=== PATIENT | female | born 1935 | race Caucasian/White ===

== ENCOUNTER 2017-06-20 10:35 | Inpatient (IN) | payer OTHER ==
[2017-06-01 11:09] VITALS: BMI 22.0
--- NOTE | 2017-06-01 11:56 | PAT Medication Instructions ---
Service Date Jun 01, 2017. Current Home Medication List Atenolol (Tenormin), 25 MG PO QAM Naproxen (Aleve), 220 MG PO DAILY PRN for Pain Omeprazole (Prilosec), 20 MG PO QAM Medication Instructions For Your Scheduled Surgery - Follow surgeon's instruction for the following: Naproxen (Aleve), 220 MG PO DAILY PRN for Pain - Take the following medications the morning of surgery with a sip of water: Omeprazole (Prilosec), 20 MG PO QAM Atenolol (Tenormin), 25 MG PO QAM If you have any questions please call us at [phone] or [phone] or [phone]
[2017-06-01 12:54] LABS: BASO ABS # 0.05 K/uL (0-0.2); COMPLETE YES; EOS % 3.2 %; IG% 0.2 %; LYMPH % 24.6 %; LYMPH ABS # 1.23 K/uL (1.2-3.4); MEAN CELL VOLUME 89.1 fL (80-100); MEAN CORPUSCULAR HEMOGLOBIN 29.4 pg (25-34); MEAN PLATELET VOLUME 11.2 fL (7.4-10.4); PLATELET COUNT 180 K/uL (130-400); RED BLOOD COUNT 4.49 M/uL (4.2-5.4); WHITE BLOOD COUNT 5.01 K/uL (4.8-10.8)
--- NOTE | 2017-06-01 12:55 | DIAGNOSTIC IMAGING REPORT ---
CHEST PREADMISSION(PA/LAT) CLINICAL HISTORY: 81 years-old Female presenting with preadmission chest x-ray. TECHNIQUE: PA and lateral views of the chest were obtained. COMPARISON: Chest CT from 05/04/2015. FINDINGS: Cardiomediastinal silhouette normal. Stable appearance of the partially calcified left lung nodule. Additional calcified nodules at the right apex with associated scarring. No new focal opacity. No pleural effusion or pneumothorax. Scoliosis. Degenerative changes of the bilateral glenohumeral joints likely with a loose body on the right. Upper abdomen normal. IMPRESSION: 1. No acute cardiopulmonary disease. Chronic changes above. Electronically signed by: Berny Nowak M.D. 06/01/2017 12:54 PM Dictated Date/Time: 06/01/2017 12:49 PM
[2017-06-01 13:00] LABS: URINE APPEARANCE CLEAR (CLEAR); URINE BILIRUBIN NEG (NEG); URINE COLOR YELLOW; URINE NITRITE NEG (NEG); URINE SPECIFIC GRAVITY 1.019 (1.000-1.030); UROBILINOGEN NEG (NEG); ZZUR CULT IF INDIC CLEAN CATCH NO
[2017-06-01 13:01] LABS: MANUAL MICROSCOPIC REQUIRED? NO; REVIEW REQ? NO
[2017-06-01 13:04] LABS: PARTIAL THROMBOPLASTIN RATIO 0.9; PROTHROMBIN TIME (PATIENT) 10.5 SECONDS (9.0-12.0)
[2017-06-01 13:24] LABS: ESTIMATED AVERAGE GLUCOSE 126 mg/dl; HA1C FLAG Normal (Normal)
[2017-06-01 14:31] LABS: BUN/CREATININE RATIO 23.1 (10-20); CALCIUM 8.5 mg/dl (8.5-10.1); CREATININE 0.82 mg/dl (0.60-1.20); POTASSIUM 4.7 mmol/L (3.5-5.1)
--- NOTE | 2017-06-19 18:56 | HISTORY & PHYSICAL EXAMINATION ---
DATE OF ADMISSION: 06/20/2017 CHIEF COMPLAINT: Chronic left shoulder pain. HISTORY OF PRESENT ILLNESS: This is a 81-year-old female patient of Dr. Bah who is complaining of chronic left shoulder pain, longstanding, now progressively getting worse. The patient has failed conservative treatment and been diagnosed with arthritis and rotator cuff arthropathy and insufficiency. The patient wishes to proceed with a left reverse total shoulder arthroplasty. PAST MEDICAL HISTORY: Heart valve problems, irregular heartbeat, recent pneumonia, spine problems, acid reflux, and hiatal hernia. SOCIAL HISTORY: Nonsmoker, nondrinker. PAST SURGICAL HISTORY: Both shoulders and appendectomy. FAMILY HISTORY: Noncontributory. REVIEW OF SYSTEMS: The patient complains of chronic right shoulder pain and weakness. Otherwise, denies any shortness of breath, chest pain, nausea, vomiting or any other joint complaints. MEDICATIONS: Include atenolol 25 mg daily, Prilosec 20 mg daily, and Aleve 220 mg p.r.n. ALLERGIES: No known drug allergies. PHYSICAL EXAMINATION: GENERAL: Well-developed, well-nourished 81-year-old female in no acute distress. She is alert and oriented x3 and pleasant. HEENT: Normocephalic, atraumatic. Extraocular motions are intact. Pupils are equal and reactive to light. HEART: Regular rate and rhythm, no murmurs appreciated. LUNGS: Clear. ABDOMEN: Soft, nontender, bowel sounds present. EXTREMITIES: Left shoulder reveals 3/5 strength. She has crepitation with passive range of motion. She has pain with range of motion. NEUROLOGIC: Neurovascularly, she is intact in her left upper extremity. DIAGNOSES: Left shoulder rotator cuff tendonopathy and arthritis. She also has a history of a heart valve problems, irregular heartbeat, recent pneumonia, spine problems, acid reflux, and hiatal hernia. PLAN: The patient was advised of her diagnosis. Indications, risks, benefits, and postop course have all been reviewed. The patient wishes to proceed with a left reverse total shoulder arthroplasty. Necessary consent forms, preoperative testing and clearances will be obtained.
[2017-06-20] VITALS (7 sets, daily range): BP systolic 126–150; BP diastolic 60–73; PULSE 65–72; TEMP 36.7–37.1; O2SAT 95–100; Ht 167.6 cm; Wt 62.6 kg
[~2017-06-20] VITALS: Ht 167.6 cm; Wt 62.6 kg
[~2017-06-20 10:35] MED LIST: ACETAMINOPHEN 500 MG TAB PO SCH; ATEN-173 PO; ATROPINE SULFATE 0.1 MG/ML 5ML SYR IV PRN; CEFAZOLIN 1000MG/55 ML D5W 55 ML IV SCH; CeleBREX 200 MG CAP PO SCH; DEXAMETHASONE 4 MG TAB PO SCH; EpHEDrine SULFATE INJ 50 MG/ML AMP IV PRN; FAMOTIDINE 20 MG TAB PO SCH; GABAPENTIN 300 MG CAP PO SCH; HYDROmorphone INJ 2 MG/ML SYR/VIAL IV PRN; LACTATED RINGER'S 1000ML 1,000 ML IV SCH; LACTATED RINGER'S 1000ML IV SCH; METOCLOPRAMIDE HCL 10 MG TAB PO SCH; NAPR1TAB9 PO; ONDANSETRON INJ 2 MG/ML 2 ML VIAL IV PRN; PHENYLEPHRINE 100MCG/ML 5ML SYR IV PRN; PRLSR20 PO; ROPIVACAINE 0.5% 5 MG/ML 30 ML VIAL ONE
[2017-06-20] MEDS ORDERED: MIDAZOLAM HCL 1 MG/ML 2ML VIAL ONE (11:00)
[2017-06-20] MEDS ORDERED: FENTANYL CITRATE INJ 50 MCG/1 ML 2 ML VIAL ONE (11:00)
[2017-06-20] MEDS ORDERED: LIDOCAINE HCL 2% 2 ML VIAL (20MG/ML) ONE (11:01)
[2017-06-20] MEDS ORDERED: PROPOFOL IV EMULSION 10 MG/ML 20 ML VIAL IV ONE (11:01)
[2017-06-20] MEDS ORDERED: ONDANSETRON INJ 2 MG/ML 2 ML VIAL ONE (11:01)
--- NOTE | 2017-06-20 12:02 | History & Physical Bridge Note ---
H&P Re-Evaluation Bridge Note: I have examined the patient, reviewed the History & Physical and in the interval since the performance of the History & Physical I have noted the following changes of clinical significance: No changes noted
[2017-06-20] MEDS ORDERED: BACITRACIN 50000 UNIT VIAL ONE (12:34)
[2017-06-20] MEDS ORDERED: GLYCOPYRROLATE INJ 0.2 MG/ML VIAL ONE ×2 (13:40)
[2017-06-20] MEDS ORDERED: NEOSTIGMINE METHYLSULFATE 5 MG/5 ML SYR ONE (13:40)
[2017-06-20] MEDS ORDERED: ROCURONIUM BROMIDE 10 MG/ML 5 ML VIAL IV ONE ×2 (14:10→15:00)
[2017-06-20] MEDS ORDERED: EpHEDrine SULFATE INJ 50 MG/ML AMP ONE (14:36)
[2017-06-20] MEDS ORDERED: PHENYLEPHRINE 100MCG/ML 5ML SYR ONE (15:03)
[2017-06-20] MEDS ORDERED: BISACODYL 10 MG SUPP PR PRN (16:00)
[2017-06-20] MEDS ORDERED: METOCLOPRAMIDE HCL INJ 5 MG/ML 2 ML VIAL IV PRN (16:00)
[2017-06-20] MEDS ORDERED: ONDANSETRON INJ 2 MG/ML 2 ML VIAL IV PRN (16:00)
[2017-06-20] MEDS ORDERED: SOD PHOSPHATE/SOD BIPHOSPHATE ENEMA 132 ML BTL PR PRN (16:00)
[2017-06-20] MEDS ORDERED: ZOLPIDEM TARTRATE 5 MG TAB PO PRN (16:00)
[2017-06-20] MEDS ORDERED: MAGNESIUM HYDROXIDE SUSP 30 ML UDC PO PRN (16:00)
[2017-06-20] MEDS ORDERED: NALOXONE HCL 0.4 MG/1 ML VIAL/CARP IV PRN (16:00)
--- NOTE | 2017-06-20 16:24 | DIAGNOSTIC IMAGING REPORT ---
L SHOULDER MIN 2 VIEWS ROUTINE CLINICAL HISTORY: Post shoulder surgery. COMPARISON: None FINDINGS: Alignment of the left shoulder arthroplasty is anatomic. There is no periprosthetic fracture or unexpected radiopaque foreign body. Drains are in place. Skin igor are present. A left lung partially calcified nodule is unchanged. IMPRESSION: Expected findings following left shoulder arthroplasty. Electronically signed by: Wade Guerra M.D. 06/20/2017 4:22 PM Dictated Date/Time: 06/20/2017 4:20 PM
--- NOTE | 2017-06-20 16:32 | [facility] Post Operative Brief Note ---
Immediate Operative Summary Operative Date Jun 20, 2017. Pre-Operative Diagnosis Left Shoulder Rotator Cuff Tendonopathy and Osteoarthritis Post-Operative Diagnosis Same as preoperative,biceps tendinopahty ,repairable infraspinatus Procedure(s) Performed Left Reverse Total Shoulder Arthroplasty, Rotator Cuff Repair, Bicep Tenodesis Surgeon Dr. Prabhakar Pablo [employer] Repairer Surgeon(s) Gilberto Berumen PA-C Estimated Blood Loss 25ml Findings as above,grade 4 djd some bone loss Specimens a. left humeral head Drains 2 hemovac Anesthesia general regional Complication(s) None Disposition Recovery Room / PACU
--- NOTE | 2017-06-20 17:01 | OPERATIVE REPORT ---
DATE OF OPERATION: 06/20/2017 INDICATION FOR PROCEDURE: The patient is a 81-year-old female with chronic left shoulder pain and disability. She has had previous rotator cuff repair in the past. She went on to fail rotator cuff repair and have chronic weakness, pain and develop osteoarthritis and advanced rotator cuff arthropathy and end-stage glenohumeral DJD with some posterior glenoid erosion. She has limited function at this time with her forward elevation, only actively and 90 abduction only to about 70 and the passive motion is no better and external rotation to 30 degrees. She has dvvh-ej-buvg crepitation in the shoulder. PREOPERATIVE DIAGNOSES: End-stage rotator cuff arthropathy, end-stage degenerative joint disease, chronic rotator cuff tear, status post failed rotator cuff repair, left shoulder. POSTOPERATIVE DIAGNOSES: Same including marked biceps tendinopathy. PROCEDURE: Left shoulder reversed total shoulder arthroplasty with biceps tenodesis with rotator cuff repair of infraspinatus tendon. SURGEON: Dr. Pablo. CLAIM REP: Gilberto Berumen PA-C. ANESTHESIA: Regional block and general. OPERATIVE PROCEDURE: The patient was taken to the operating room, anesthetized with regional block and general anesthetic. The patient was positioned on the operating room table in a 30 degree beach chair position. She was placed onto a towel roll under her left scapula. She was translated to left side of the bed, so her shoulder could be manipulated off the bed as necessary. Head was placed on a foam headrest. She had protective eyewear placed. She had TEDs and SCDs placed. Left shoulder was examined under anesthesia. She had thin arm. She had 90 degrees of passive forward elevation, 70 degrees of abduction and 30 degrees of external rotation and [id number] crepitation. She had old scars from prior surgery with longitudinal scars from open surgery and the prior arthroscopy. Her left shoulder was sterilely prepped and draped with ChloraPrep. An anterior deltopectoral approach was performed. Skin was incised sharply in a longitudinal fashion. Subcutaneous flaps were elevated. She had thin flaps of tissue. The cephalic vein was dissected out and retracted laterally with the deltoid. The pectoralis was retracted medially. The upper centimeter of the pectoralis was released for inferior exposure. The thickened clavipectoral fascia was divided at the lateral margin of the strap muscle and conjoined tendon extended up to the CA ligament which was preserved. The thickened bursa was resected off the subscapularis which was noted to be intact. There was a large thickened area of debris and synovial tissue coming out of the rotator interval overlapping the anterior upper subscapularis. This scarred material was all resected. The supraspinatus tendon had a chronic tear. The infraspinatus tendon was still intact to the greater tuberosity, but there was a split between the infraspinatus and teres minor with a tendinopathic tissue between those areas and I felt we could go ahead and repair that posterior defect. The biceps tendon sheath was opened up and the biceps tendon had significant tendinopathy and later in the case, we identified the biceps in the joint and there was widened, thickened marked tendinopathy. The biceps was first tenodesed to the pectoralis tendon with a upkwkj-th-gnacr #2 FiberWire sutures. The proximal biceps tendon was resected. The circumflex vessels were identified, tied off with silk ties and divided laterally. The muscle fibers of the subscapularis was split at the level of the circumflex vessels leaving a cuff of tissue to protect the axillary nerve inferiorly and a Kitner elevator was used to reflect the muscle fibers off the inferior capsule and a blunt Hohmann retractor was placed to protect the axillary nerve. The rotator interval was opened up and extended down to the glenoid and extended lateral to the greater tuberosity. Then we carried incision down through the bicipital groove and took the subscapularis down this subperiosteally off the lesser tuberosity. A traction suture with #1 Vicryl suture was placed into the tendon. The capsule was then released off the neck of the humerus gradually as we externally rotated the arm. Then in this we had a large inferior humeral osteophyte extended from lateral to medial. We used the artist chisel to resect the osteophytes and a rongeur to remove all the osteophytes. There was also large osteophyte on the lesser tuberosity and that was removed. The humeral head was completely exposed bone as well as the glenoid and there was some posterior glenoid wear. There was little bit of articular cartilage in the anterior most aspect of the glenoid. At this point, we retracted the humeral head posteriorly with a Fukuda retractor and then we noticed some bleeding and the friable large cephalic vein did rupture as we tied it off. At this time, then with the axillary nerve protected inferiorly after identifying with a tug test and protected by blunt Hohmann retractor, we used a Garcia scissors and cut the capsule down to the glenoid and released the capsule off the anterior labrum and glenoid with the Garcia scissors and then the rotator interval was released down to meet at capsular release, so we had a 360 degree release of the subscapularis. The subscapularis was then retracted anteriorly with a Bankart retractor. Then, the labrum was resected, the remainder of the biceps tendon was resected, some remnants of the supraspinatus tendon were resected. The anterior, posterior-inferior capsular release was performed with electrocautery and a Barkley elevator. Then we were able to go ahead and exposed the humeral head. At this time, we internally rotated the arm and identified the posterior rotator cuff tear between teres minor and infraspinatus and did elliptical resection of the degenerative tissue, I used a rongeur on the bone to get a bony bleeding surface, then we did a tbss-ut-ncnp repair between the teres minor and infraspinatus using nzgwie-ch-lrhax #2 FiberWire sutures. Then the humeral head was exposed with extension and external rotation and a cutting guide for the humeral head resection was used. I used a Tonier Aequalis reversed II shoulder replacement system using an Ascend Flex long stem humeral component. The cut was made in 20 degrees of retroversion. The humeral head was then retracted posterior to the glenoid. I used a curet to remove some of the articular cartilage on the anterior glenoid so we were able to see the true version. Then we placed a drill hole using the 25 mm baseplate guide. the guide was adjusted inferiorly so that we would not get notching. We also put an inferior tilt to 10 degrees on the alignment of the drill hole placement. Then the 25 mm reamer was used and then the central hole was widened and we placed the 25 mm baseplate and impacted in position. This was hydroxyapatite coated 25 mm baseplate. We used anterior and posterior compression screws of 23 and 18 mm and superior and inferior locking screws of 32 and 23 mm. Then the baseplate was completely stable. The patient had excellent bone. I used the fan reamer for a 36 mm glenosphere and then removed all the debris. Then we placed a 36 x 25 mm standard glenosphere in place and the screw was tightened and the fixation was stable. Then the humerus was exposed with extension and external rotation. We broached up to a size 6 humeral component. We did trial reduction with a +0 high offset tray and a +6 insert and we though it was completely stable and no shock and conjoined tendon tension was tight fit and satisfactory and the shoulder was stable to full passive range of motion. The trial was removed and then 3 drill holes were made through hard bone in the bicipital groove, placed around the lesser tuberosity and #5 FiberWire sutures were placed x3. Then after copious irrigation, the final components were assembled, the Ascend Flex 6B long stem assembled to the humeral tray +0 3.5 offset assemble to the 36 x 6 mm humeral insert. Then that entire implant was impacted into the humerus maintained to 20 degrees of retroversion. There was excellent press fit fixation. Then I reduced the humeral to the glenosphere component. Then I reassessed stability. Then, the subscapularis was repaired with the #5 FiberWire sutures using a Nikhil-Kris suture technique. Then we did some lateral soft tissue fixation of the subscapularis with vispav-wt-tqgqs #2 FiberWire sutures. Then the pectoralis was repaired reinforcing the tenodesis using #2 FiberWire sutures in a tbxgwu-lu-vxzaa fashion. Then we assessed range of motion. The patient had about 45-50 degrees of external rotation without tension on subscapularis repair. She had 120 degrees of forward elevation and 90 degrees of abduction. The wound was copiously irrigated with antibiotic solution and bacitracin. The 2 drains were brought out laterally. The deltopectoral interval was repaired with edymnx-in-lmboi #1 Vicryl sutures and the subcutaneous tissue closed with interrupted 2-0 Vicryl, skin closed with igor. Sterile dressings were applied and a shoulder immobilizer. The patient tolerated the procedure well. VENESSA Gutierrez was my mechanic assistant and he function as mechanic assistant for the entire procedure. He assisted in patient positioning, prepping, draping, arm positioning, instrument management and soft tissue retraction as necessary and he did perform the final subcutaneous and skin closure and will participate in the postoperative care of the patient. I attest to the content of the Intraoperative Record and any orders documented therein. Any exceptions are noted below. HAMIDA
--- NOTE | 2017-06-20 17:21 | Medical Consult ---
Consultation Date of Consultation: Jun 20, 2017. Attending Physician: Prabhakar Pablo M.D. Reason for Consultation: Medical management History of Present Illness Patient is a pleasant 81 y/o female, with PMHx of heart valve problems, irregular heartbeat, spine problems, acid reflux, hiatal hernia s/p L total shoulder arthroplasty by Dr. Pablo on 06/20. Patient resting in bed. No complaints. Pain is well controlled. Has not eaten anything since procedure. No flatus/BM postop. Takes Atenolol for an irregular heartbeat- denies a.fib/ flutter. Does NOT follow w/ cardiology. Patient denies any fever, chills, sweats , lightheadedness, dizziness, vision changes, CP, palpitations, edema, SOB, wheezing, cough, abdominal pain, nausea, vomiting, diarrhea, urinary symptoms, melena, numbness/tingling, weakness, anxiety/depression, active bleeding, or new skin discoloration/changes. Past Medical/Surgical History PAST MEDICAL HISTORY: Heart valve problems- mitral irregular heartbeat spine problems acid reflux hiatal hernia. PAST SURGICAL HISTORY: bilateral shoulders appendectomy Family History Noncontributory Social History Smoking Status: Never Smoker Alcohol Use: none Drug Use: none Occupation Status: retired Allergies Coded Allergies: Doxycycline (Unverified Allergy, Unknown, UNKNOWN REACTION, 06/20/17) PER PCP RECORDS Levofloxacin (Unverified Allergy, Unknown, UNKNOWN REACTION, 06/20/17) PER PCP RECORDS Home Medications Reported Home Medications Medications Dose Route/Sig Max Daily Dose Days Date Category Aleve (Naproxen) 220 Mg Tab 220 Mg PO DAILY PRN 06/01/17 Reported Prilosec (Omeprazole) 20 Mg Capcr 20 Mg PO QAM 06/01/17 Reported Tenormin (Atenolol) 25 Mg Tab 25 Mg PO QAM 06/01/17 Reported Current Inpatient Medications Current Inpatient Medications Medications (Trade) Dose Ordered Sig/Blayne Route Start Time Stop Time Status Last Admin Dose Admin Lactated Ringer's 1,000 ml @ 15 mls/hr Q24H IV 06/20/17 06:00 06/21/17 05:59 Lactated Ringer's 1,000 ml @ 60 mls/hr [id number] IV 06/20/17 06:00 06/20/17 22:39 06/20/17 10:56 60 MLS/HR Cefazolin Sodium 55 ml @ 100 mls/hr PREOP IV 06/20/17 06:00 06/20/17 18:00 06/20/17 06:00 100 MLS/HR Acetaminophen (Tylenol Tab) 1,000 mg PREOP PO 06/20/17 06:00 06/20/17 18:00 06/20/17 10:59 1,000 MG Celecoxib (CeleBREX CAP) 200 mg PREOP PO 06/20/17 06:00 06/20/17 18:00 06/20/17 10:57 200 MG Dexamethasone (Decadron Tab) 8 mg PREOP PO 06/20/17 06:00 06/20/17 18:00 06/20/17 10:57 8 MG Famotidine (Pepcid Tab) 20 mg PREOP PO 06/20/17 06:00 06/20/17 18:00 06/20/17 10:58 20 MG Gabapentin (Neurontin Cap) 300 mg PREOP PO 06/20/17 06:00 06/20/17 18:00 06/20/17 10:58 300 MG Metoclopramide HCl (Reglan Tab) 10 mg PREOP PO 06/20/17 06:00 06/20/17 18:00 06/20/17 10:58 10 MG Atenolol (Tenormin Tab) 25 mg QAM PO 06/21/17 09:00 07/21/17 08:59 UNV Diphenhydramine HCl (Benadryl Cap) 25 mg Q8 PRN PO 06/20/17 16:00 07/20/17 15:59 Zolpidem Tartrate (Ambien Tab) 5 mg HSZ PRN PO 06/20/17 16:00 07/20/17 15:59 Metoclopramide HCl (Reglan Inj) 10 mg Q6H PRN IV 06/20/17 16:00 07/20/17 15:59 Ondansetron HCl (Zofran Inj) 4 mg Q6H PRN IV 06/20/17 16:00 07/20/17 15:59 Pantoprazole Sodium (Protonix Tab) 40 mg QAM PO 06/21/17 09:00 07/21/17 08:59 UNV Potassium Chloride/Dextrose/ Sod Cl 1,000 ml @ 100 mls/hr Q10H IV 06/20/17 15:48 06/21/17 15:00 UNV Oxycodone HCl (Roxicodone Immediate Rel Tab) `1-2 TABS FOR PAIN `1 TAB... Q4H PRN PO 06/20/17 16:00 07/04/17 15:59 UNV Acetaminophen (Tylenol Tab) 1,000 mg Q8 PO 06/20/17 22:00 07/20/17 21:59 UNV Morphine Sulfate (MoRPHine SULFATE INJ) 2 mg Q2H PRN IV 06/20/17 16:00 07/04/17 15:59 UNV Naloxone HCl (Narcan Inj) 0.1 mg Q2M PRN IV 06/20/17 16:00 07/20/17 15:59 Magnesium Hydroxide (Milk Of Magnesia Susp) 30 ml Q6H PRN PO 06/20/17 16:00 07/20/17 15:59 Bisacodyl (Dulcolax Supp) 10 mg DAILY PRN KS 06/20/17 16:00 07/20/17 15:59 Sodium Biphosphate/ Sodium Phosphate (Fleet Enema) 132 ml DAILY PRN [place] 06/20/17 16:00 07/20/17 15:59 Docusate Sodium (coLACE CAP) 100 mg BID PO 06/20/17 21:00 07/20/17 20:59 UNV Multivitamins (Multivitamin Tab) 1 tab DAILY PO 06/21/17 09:00 07/21/17 08:59 UNV Cefazolin Sodium 1000 mg/Dextrose 55 ml @ 100 mls/hr Q8H IV 06/20/17 16:00 06/21/17 00:32 UNV Aspirin (Ecotrin Tab) 325 mg QAM PO 06/21/17 09:00 07/21/17 08:59 UNV Tramadol HCl (Ultram Tab) 50 mg Q4H PRN PO 06/20/17 16:00 07/20/17 15:59 UNV Physical Exam Date Time Temp Pulse Resp B/P (MAP) Pulse Ox O2 Delivery O2 Flow Rate FiO2 06/20/17 16:30 36.8 66 15 138/65 98 Nasal Cannula 2 06/20/17 16:20 68 16 134/68 97 Nasal Cannula 2 06/20/17 16:10 69 17 132/68 97 Oxymask 10 06/20/17 16:00 76 20 136/65 98 Oxymask 10 06/20/17 15:51 36.8 87 16 154/65 99 Oxymask 10 06/20/17 10:55 36.7 70 16 150/70 98 Room Air General Appearance: no apparent distress, + pertinent finding (O2 NC) Head: normocephalic, atraumatic Eyes: PERRL ENT: normal ENT inspection, + pertinent finding (+dentures ) Neck: supple Respiratory/Chest: lungs clear, no respiratory distress, no accessory muscle use Cardiovascular: + abnormal rhythm (irregular; rate controlled ) Abdomen/GI: normal bowel sounds, non tender, soft Extremities/Musculoskelatal: no calf tenderness, no pedal edema, + pertinent finding (L upper extremity w/ sling+ ice pack- ) Neurologic/Psych: alert, normal reflexes, oriented x 3 Skin: normal color, warm/dry, no rash Assessment & Plan Patient is a pleasant 81 y/o female, with PMHx of heart valve problems, irregular heartbeat, spine problems, acid reflux, hiatal hernia s/p L total shoulder arthroplasty by Dr. Pablo on 06/20. s/p L total shoulder arthroplasty by Dr. Pablo on 06/20: - Surgical management, pain management, PT/OT, and DVT prophylaxis - Bowel regimen ordered - Follow CBC and PRP postop - Encourage incentive spirometer Irregular heartbeat: Continue Atenolol 25 mg QAM GI prophylaxis: Protonix DVT prophylaxis: ASA as per surgical team Dispo: As per primary team Thank you for this consultation. We will continue to follow. .Attending Addendum: I have physically seen this patient, have directed the physician assistants medical activities, and agree with the H&P as noted above with the following exceptions as noted. Assessment and Plan: Status post left total shoulder arthroplasty on 06/[address] Baldwin-- Medically stable and is Dysrhythmia--continue atenolol 25 mg by mouth every morning with hold parameters. GERD--continue pantoprazole 40 mg by mouth daily.
[2017-06-20] MEDS: D5W AND 1/2NSS + 20MEQ KCL 1,000 ML IV SCH (18:04)
[2017-06-20] MEDS: DOCUSATE SODIUM 100 MG CAP PO SCH (21:21)
[2017-06-20] MEDS: ACETAMINOPHEN 500 MG TAB PO SCH (21:22)
[2017-06-20] MEDS: CEFAZOLIN IV 1,000 MG in DEXTROSE 5% 50ML 50 ML IV SCH (23:47)
[2017-06-21 03:03] VITALS: BP 131/73; PULSE 72; TEMP 36.9; O2SAT 96
[2017-06-21] MEDS: D5W AND 1/2NSS + 20MEQ KCL 1,000 ML IV SCH ×2 (03:03→12:14)
[2017-06-21] MEDS: ACETAMINOPHEN 500 MG TAB PO SCH ×3 (05:20→21:59)
[2017-06-21 07:03] LABS: HEMATOCRIT 33.3 % (37-47); MEAN CELL VOLUME 88.3 fL (80-100); MEAN CORPUSCULAR HEMOGLOBIN 30.2 pg (25-34); MEAN CORPUSCULAR HGB CONC 34.2 g/dl (32-36); MEAN PLATELET VOLUME 10.4 fL (7.4-10.4); PLATELET COUNT 140 K/uL (130-400); RED BLOOD COUNT 3.77 M/uL (4.2-5.4); WHITE BLOOD COUNT 6.87 K/uL (4.8-10.8)
[2017-06-21 07:15] VITALS: BP 119/65; PULSE 67; TEMP 36.8; O2SAT 98
[2017-06-21 07:32] LABS: BUN/CREATININE RATIO 18.6 (10-20); CALCIUM 8.4 mg/dl (8.5-10.1); CREATININE 0.92 mg/dl (0.60-1.20); POTASSIUM 4.5 mmol/L (3.5-5.1)
[2017-06-21] MEDS: CEFAZOLIN IV 1,000 MG in DEXTROSE 5% 50ML 50 ML IV SCH (08:16)
--- NOTE | 2017-06-21 08:17 | Anesthesiology Progress Note ---
Anesthesia Post Op Note Date & Time Jun 21, 2017 at 08:17 Vital Signs Pain Intensity: 0.0 Vital Signs Past 12 Hours Date Time Temp Pulse Resp B/P (MAP) Pulse Ox O2 Delivery O2 Flow Rate FiO2 06/21/17 07:15 36.8 67 16 119/65 (83) 98 Room Air 06/21/17 03:03 36.9 72 16 131/73 (92) 96 Room Air 06/20/17 23:46 36.9 65 17 137/67 (90) 98 Room Air 06/20/17 23:46 Room Air Notes Mental Status: alert / awake / arousable, participated in evaluation Pt Amnestic to Procedure: Yes Nausea / Vomiting: adequately controlled Pain: adequately controlled Airway Patency, RR, SpO2: stable & adequate BP & HR: stable & adequate Hydration State: stable & adequate Anesthetic Complications: no major complications apparent
[2017-06-21] MEDS: ASPIRIN 325 MG ECTAB PO SCH (08:19)
[2017-06-21] MEDS: DOCUSATE SODIUM 100 MG CAP PO SCH ×2 (08:19→21:59)
[2017-06-21] MEDS: MULTIVITAMIN TAB PO SCH (08:20)
[2017-06-21] MEDS: PANTOprazole SOD 40 MG TAB PO SCH (08:20)
--- NOTE | 2017-06-21 10:16 | Orthopedic Progress Note ---
Orthopedic Progress Note Date of Service Jun 21, 2017. Subjective Post OP Day: 1 Reports: feeling well, pain controlled w PO medications, Denies: complaints, chest pain, SOB, nausea / vomiting, light headedness, calf pain Objective N/V intact, capillary refill less than 2 sec., dressing C/D/I, A&O x3 Sling in tact, Fingers mobile Date Time Temp Pulse Resp B/P (MAP) Pulse Ox O2 Delivery O2 Flow Rate FiO2 06/21/17 07:40 Room Air 06/21/17 07:15 36.8 67 16 119/65 (83) 98 Room Air 06/21/17 03:03 36.9 72 16 131/73 (92) 96 Room Air 06/20/17 23:46 36.9 65 17 137/67 (90) 98 Room Air 06/20/17 23:46 Room Air 06/20/17 19:45 36.8 67 18 127/65 (85) 98 Room Air 06/20/17 19:07 36.8 68 18 141/70 (93) 97 Room Air 06/20/17 17:55 69 18 143/60 (87) 95 Nasal Cannula 2.0 06/20/17 17:30 37.1 67 18 126/73 (90) 100 Nasal Cannula 2.0 06/20/17 16:45 Room Air 06/20/17 16:45 37.1 72 18 129/69 (89) 100 Nasal Cannula 2.0 06/20/17 16:45 Ambu-Bag 2.0 06/20/17 16:30 36.8 66 15 138/65 98 Nasal Cannula 2 06/20/17 16:20 68 16 134/68 97 Nasal Cannula 2 06/20/17 16:10 69 17 132/68 97 Oxymask 10 06/20/17 16:00 76 20 136/65 98 Oxymask 10 06/20/17 15:51 36.8 87 16 154/65 99 Oxymask 10 06/20/17 10:55 36.7 70 16 150/70 98 Room Air Laboratory Results 24 Hours: Test 06/21/17 06:36 Hematocrit 33.3 % Hemoglobin 11.4 g/dL Assessment & Plan Assessment: POD #1, Left Reversed TSA, Biceps tenodesis Plan: Limited PT in hosp, NO PT after discharge. DVT proph- ASA D/ planning- Home per medicine Inhouse Planning Pain Management: Morphine, PO Tylenol, Oxy IR DVT Prophylaxis: TEDs, SCDs, ASA Discharge Planning Discharge Planning: home Pain Management: PO Tylenol, Oxy IR DVT Prophylaxis: TEDs, ASA
[2017-06-21 12:05] VITALS: BP 163/83; PULSE 66; TEMP 37.2; O2SAT 98
[2017-06-21] MEDS: TRAMADOL HCL 50 MG TAB PO PRN (12:19)
[2017-06-21 12:21] VITALS: BP 159/73
[2017-06-21] MEDS: OXYCODONE HCL IR 5 MG TAB (IMMEDIATE RELEASE) PO PRN ×3 (13:29→22:00)
--- NOTE | 2017-06-21 13:51 | Progress Note ---
Subjective Date of Service: Jun 21, 2017. Subjective Pt evaluation today including: conversation w/ patient, physical exam, chart review, lab review 81 yo female who is in the hospital for Left Reversed TSA, Biceps tenodesis. Patient was consulted for medical management. Patient has no complaints aside from left shoulder pain. Denies chest pain, palpitations, nausea, vomiting. Review of Systems Constitutional: No fever, No chills Respiratory: No cough, No sputum Cardiac: No chest pain, No orthopnea Abdomen: No pain, No nausea Female : No dysuria, No urinary frequency Psychiatric: No depression symptoms, No anhedonism Heme: No abnormal bleeding/bruising Endo: No fatigue All Other Systems: Reviewed and Negative Medications Current Inpatient Medications Medications (Trade) Dose Ordered Sig/Blayne Route Start Time Stop Time Status Last Admin Dose Admin Atenolol (Tenormin Tab) 25 mg QAM PO 06/21/17 09:00 07/21/17 08:59 06/21/17 08:20 25 MG Diphenhydramine HCl (Benadryl Cap) 25 mg Q8 PRN PO 06/20/17 16:00 07/20/17 15:59 Zolpidem Tartrate (Ambien Tab) 5 mg HSZ PRN PO 06/20/17 16:00 07/20/17 15:59 Metoclopramide HCl (Reglan Inj) 10 mg Q6H PRN IV 06/20/17 16:00 07/20/17 15:59 Ondansetron HCl (Zofran Inj) 4 mg Q6H PRN IV 06/20/17 16:00 07/20/17 15:59 Pantoprazole Sodium (Protonix Tab) 40 mg QAM PO 06/21/17 09:00 07/21/17 08:59 06/21/17 08:20 40 MG Potassium Chloride/Dextrose/ Sod Cl 1,000 ml @ 100 mls/hr Q10H IV 06/20/17 17:00 06/21/17 16:59 06/21/17 12:14 100 MLS/HR Oxycodone HCl (Roxicodone Immediate Rel Tab) `1-2 TABS FOR PAIN `1 TAB... Q4H PRN PO 06/20/17 16:00 07/04/17 15:59 06/21/17 13:29 5 MG Acetaminophen (Tylenol Tab) 1,000 mg Q8 PO 06/20/17 22:00 07/20/17 21:59 06/21/17 13:30 1,000 MG Morphine Sulfate (MoRPHine SULFATE INJ) 2 mg Q2H PRN IV 06/20/17 16:00 07/04/17 15:59 Naloxone HCl (Narcan Inj) 0.1 mg Q2M PRN IV 06/20/17 16:00 07/20/17 15:59 Magnesium Hydroxide (Milk Of Magnesia Susp) 30 ml Q6H PRN PO 06/20/17 16:00 07/20/17 15:59 Bisacodyl (Dulcolax Supp) 10 mg DAILY PRN AR 06/20/17 16:00 07/20/17 15:59 Sodium Biphosphate/ Sodium Phosphate (Fleet Enema) 132 ml DAILY PRN AR 06/20/17 16:00 07/20/17 15:59 Docusate Sodium (coLACE CAP) 100 mg BID PO 06/20/17 21:00 07/20/17 20:59 06/21/17 08:19 100 MG Multivitamins (Multivitamin Tab) 1 tab DAILY PO 06/21/17 09:00 07/21/17 08:59 06/21/17 08:20 1 TAB Aspirin (Ecotrin Tab) 325 mg QAM PO 06/21/17 09:00 07/21/17 08:59 06/21/17 08:19 325 MG Tramadol HCl (Ultram Tab) 50 mg Q4H PRN PO 06/20/17 16:00 07/20/17 15:59 06/21/17 12:19 50 MG Objective Vital Signs Date Time Temp Pulse Resp B/P (MAP) Pulse Ox O2 Delivery O2 Flow Rate FiO2 06/21/17 12:21 159/73 (101) 06/21/17 12:05 37.2 66 16 163/83 (109) 98 Room Air 06/21/17 07:40 Room Air 06/21/17 07:15 36.8 67 16 119/65 (83) 98 Room Air 06/21/17 03:03 36.9 72 16 131/73 (92) 96 Room Air 06/20/17 23:46 36.9 65 17 137/67 (90) 98 Room Air 06/20/17 23:46 Room Air 06/20/17 19:45 36.8 67 18 127/65 (85) 98 Room Air 06/20/17 19:07 36.8 68 18 141/70 (93) 97 Room Air 06/20/17 17:55 69 18 143/60 (87) 95 Nasal Cannula 2.0 06/20/17 17:30 37.1 67 18 126/73 (90) 100 Nasal Cannula 2.0 06/20/17 16:45 Room Air 06/20/17 16:45 37.1 72 18 129/69 (89) 100 Nasal Cannula 2.0 06/20/17 16:45 Ambu-Bag 2.0 06/20/17 16:30 36.8 66 15 138/65 98 Nasal Cannula 2 06/20/17 16:20 68 16 134/68 97 Nasal Cannula 2 06/20/17 16:10 69 17 132/68 97 Oxymask 10 06/20/17 16:00 76 20 136/65 98 Oxymask 10 06/20/17 15:51 36.8 87 16 154/65 99 Oxymask 10 Physical Exam Comments: General Appearance: no apparent distress, + pertinent finding (O2 NC) Head: normocephalic, atraumatic Eyes: PERRL ENT: normal ENT inspection, + pertinent finding (+dentures ) Neck: supple Respiratory/Chest: lungs clear, no respiratory distress, no accessory muscle use Cardiovascular: + abnormal rhythm (irregular; rate controlled ) Abdomen/GI: normal bowel sounds, non tender, soft Extremities/Musculoskelatal: no calf tenderness, no pedal edema, + pertinent finding (L upper extremity w/ sling+ ice pack- ) Neurologic/Psych: alert, normal reflexes, oriented x 3 Skin: normal color, warm/dry, no rash Laboratory Results Last 24 Hours Test 06/21/17 06:36 White Blood Count 6.87 K/uL Red Blood Count 3.77 M/uL Hemoglobin 11.4 g/dL Hematocrit 33.3 % Mean Corpuscular Volume 88.3 fL Mean Corpuscular Hemoglobin 30.2 pg Mean Corpuscular Hemoglobin Concent 34.2 g/dl RDW Standard Deviation 44.5 fL RDW Coefficient of Variation 13.7 % Platelet Count 140 K/uL Mean Platelet Volume 10.4 fL Sodium Level 140 mmol/L Potassium Level 4.5 mmol/L Chloride Level 108 mmol/L Carbon Dioxide Level 28 mmol/L Anion Gap 4.0 mmol/L Blood Urea Nitrogen 17 mg/dl Creatinine 0.92 mg/dl Est Creatinine Clear Calc Drug Dose 46.4 ml/min Estimated GFR () 68.6 Estimated GFR (Non- 59.2 BUN/Creatinine Ratio 18.6 Random Glucose 130 mg/dl Calcium Level 8.4 mg/dl Assessment and Plan Patient is a pleasant 81 y/o female, with PMHx of heart valve problems, irregular heartbeat, spine problems, acid reflux, hiatal hernia s/p L total shoulder arthroplasty by Dr. Pablo on 06/20. s/p L total shoulder arthroplasty by Dr. Pablo on 06/20: - Surgical management, pain management, PT/OT, and DVT prophylaxis - Bowel regimen ordered - Follow CBC and PRP postop - Encourage incentive spirometer Irregular heartbeat: Continue Atenolol 25 mg QAM Hypertension: -It has been elevated, likely due to pain. -at this time, will not change anything or add further BP meds as she will likely normalize on discharge -there is concern of adding a PRN as this may drop her BP too low as she normally on needs one BP med at home GI prophylaxis: Protonix DVT prophylaxis: ASA as per surgical team Dispo: As per primary team
[2017-06-21 15:14] VITALS: BP 163/77; PULSE 65; TEMP 36.9; O2SAT 99
[2017-06-21] MEDS: MoRPHine SULFATE 2 MG/ML CARP IV PRN ×2 (17:01→19:27)
[2017-06-21 23:23] VITALS: BP 132/67; PULSE 71; TEMP 37.3; O2SAT 95
[2017-06-22] MEDS: OXYCODONE HCL IR 5 MG TAB (IMMEDIATE RELEASE) PO PRN ×2 (04:03→08:36)
[2017-06-22] MEDS: ACETAMINOPHEN 500 MG TAB PO SCH ×3 (05:32→22:17)
[2017-06-22 05:59] LABS: HEMATOCRIT 33.9 % (37-47); MEAN CELL VOLUME 89.4 fL (80-100); MEAN CORPUSCULAR HEMOGLOBIN 29.8 pg (25-34); MEAN CORPUSCULAR HGB CONC 33.3 g/dl (32-36); MEAN PLATELET VOLUME 10.5 fL (7.4-10.4); PLATELET COUNT 115 K/uL (130-400); RED BLOOD COUNT 3.79 M/uL (4.2-5.4)
[2017-06-22 06:31] LABS: CREATININE 0.88 mg/dl (0.60-1.20); POTASSIUM 4.5 mmol/L (3.5-5.1)
[2017-06-22 07:15] VITALS: BP 129/67; PULSE 70; TEMP 37.2; O2SAT 97
[2017-06-22] MEDS: PANTOprazole SOD 40 MG TAB PO SCH (08:28)
[2017-06-22 08:31] VITALS: BP 116/7; PULSE 84
[2017-06-22] MEDS: MULTIVITAMIN TAB PO SCH (08:33)
[2017-06-22] MEDS: ASPIRIN 325 MG ECTAB PO SCH (08:33)
[2017-06-22] MEDS: DOCUSATE SODIUM 100 MG CAP PO SCH ×2 (08:34→22:16)
--- NOTE | 2017-06-22 08:54 | Orthopedic Progress Note ---
Orthopedic Progress Note Date of Service Jun 22, 2017. Subjective Post OP Day: 2 Reports: pain controlled w PO medications, Denies: chest pain, SOB, nausea / vomiting, light headedness, calf pain Objective N/V intact, capillary refill less than 2 sec., incision C/D/I, A&O x3 Fingers mobile, sling in tact. Date Time Temp Pulse Resp B/P (MAP) Pulse Ox O2 Delivery O2 Flow Rate FiO2 06/22/17 08:31 84 116/7 (43) 06/22/17 07:15 37.2 70 16 129/67 (87) 97 Room Air 06/21/17 23:23 37.3 71 16 132/67 (88) 95 Room Air 06/21/17 23:21 Room Air 06/21/17 15:35 Room Air 06/21/17 15:14 36.9 65 18 163/77 (105) 99 Room Air 06/21/17 12:21 159/73 (101) 06/21/17 12:05 37.2 66 16 163/83 (109) 98 Room Air Laboratory Results 24 Hours: Test 06/22/17 05:48 Hematocrit 33.9 % Hemoglobin 11.3 g/dL Assessment & Plan Assessment: POD #2, Left Reversed TSA, Biceps tenodesis Plan: Limited PT in hosp. DVT proph- ASA D/C planning- Patient has requested to go to rehab/ SNF as she lives alone with limited help, will consult SS. per medicine Inhouse Planning Pain Management: Morphine, PO Tylenol, Oxy IR DVT Prophylaxis: TEDs, SCDs, ASA Discharge Planning Discharge Planning: home Pain Management: PO Tylenol, Oxy IR DVT Prophylaxis: TEDs, ASA
[2017-06-22] MEDS: TRAMADOL HCL 50 MG TAB PO PRN ×3 (13:35→22:17)
[2017-06-22 15:26] VITALS: BP 117/64; PULSE 68; TEMP 37.5; O2SAT 97
[2017-06-22 15:57] VITALS: TEMP 37.2
[2017-06-22 23:38] VITALS: BP 135/70; PULSE 66; TEMP 37.2; O2SAT 98
[2017-06-23] MEDS: ACETAMINOPHEN 500 MG TAB PO SCH ×2 (06:03→13:37)
[2017-06-23 07:02] VITALS: BP 131/69; PULSE 77; TEMP 37; O2SAT 98
--- NOTE | 2017-06-23 07:57 | Orthopedic Progress Note ---
Orthopedic Progress Note Date of Service Jun 23, 2017. Subjective Post OP Day: 3 Reports: feeling well, pain controlled w PO medications, Denies: complaints, chest pain, SOB, nausea / vomiting, light headedness, calf pain Objective capillary refill less than 2 sec., dressing C/D/I, A&O x3 shoulder resting in sling, has decreased emission specialist strength with index finger but states it is improving. otherwise sensation intact throughout hand. Date Time Temp Pulse Resp B/P (MAP) Pulse Ox O2 Delivery O2 Flow Rate FiO2 06/23/17 07:02 37.0 77 16 131/69 (89) 98 Room Air 06/22/17 23:59 Room Air 06/22/17 23:38 37.2 66 16 135/70 (91) 98 Room Air 06/22/17 16:30 Room Air 06/22/17 15:57 37.2 06/22/17 15:26 37.5 68 16 117/64 (81) 97 Room Air 06/22/17 08:31 84 116/7 (43) Assessment & Plan Assessment: POD #3, Left Reversed TSA, Biceps tenodesis Plan: Limited PT in hosp. DVT proph- ASA D/C planning- Patient has requested to go to rehab/ SNF as she lives alone with limited help, will consult SS, awaiting approval. may go to HS if approved today. per medicine Discharge Planning Discharge Planning: rehab hospital Pain Management: PO Tylenol, Oxy IR DVT Prophylaxis: TEDs, ASA
[2017-06-23] MEDS ORDERED: CLC100 PO (07:59)
[2017-06-23] MEDS ORDERED: ASPEC325 PO (07:59)
[2017-06-23] MEDS ORDERED: ACET-24 PO (07:59)
[2017-06-23] MEDS ORDERED: RXC5 PO (07:59)
[2017-06-23] MEDS ORDERED: ONDA8TAB6 PO (07:59)
--- NOTE | 2017-06-23 08:02 | Discharge Instructions ---
Discharge Instructions Date of Service Jun 23, 2017. Admission Reason for Admission: Left Shoulder Rotator Cuff Arthropathy Discharge Discharge Diagnosis / Problem: Left shoulder reversed total shoulder arthroplasty Discharge Goals Goal(s): Decrease discomfort, Improve function, Increase independence Activity Recommendations Activity Level: Up Ad Negar Therapies: Physical Therapy . Additional Information Patient informed of condition: Yes Advance Directives: No DNR: No Level of Care: Acute Rehab Communicable Disease: No Prognosis: Stable Knowles Catheter: No Instructions / Follow-Up Instructions / Follow-Up ACTIVITY RECOMMENDATIONS: SELF CARE INSTRUCTIONS AFTER TOTAL SHOULDER ARTHROPLASTY REVERSE A. You may do daily exercises as taught in physical therapy while in hospital. No lifting with the operative arm. B. You are to wear your sling/immobilizer at all times EXCEPT when performing your daily exercises and for hygiene purposes. C. You may perform dry, daily dressing changes. Please keep your incision covered. You may shower 48 hours after surgery. Do not apply soap or any ointment/ lotions directly over incision. Do not soak incision in bath tub/swimming pool. D. You may use ice as needed to operative shoulder. SPECIAL CARE INSTRUCTIONS: VERY IMPORTANT TO READ AND REVIEW A. There are a few signs you need to watch for after you are home. Call [facility] at [phone] if you experience any of the followin. Increased severe shoulder pain. Some pain is expected especially when you exercise. 2. Increased swelling in you shoulder or arm; pain or swelling in either upper extremity. 3. Any fluid drainage from the incision. 4. Shortness of breath or chest pain. B. Please call [facility] at [phone] if you have any questions or concerns about your operation or recovery. C. Call your physician if: 1. Temperature is greater than 101 degrees (F). 2. Pain is not relieved by prescribed pain medications. 3. Increase drainage or redness from incision. 4. Unanswered questions or concerns. FOLLOW UP VISIT: Please call [facility] at [phone] to schedule a follow up appointment with Dr. Pablo or his PA in 12-14 days from your surgery date. Current Hospital Diet Patient's current hospital diet: Regular Diet Discharge Diet Recommended Diet: Regular Diet Procedures Procedures Performed: Left Reverse Total Shoulder Arthroplasty, Rotator Cuff Repair, Bicep Tenodesis Pending Studies Studies pending at discharge: no Physician Orders On Transfer Special Precautions: follow reverse total shoulder protocol Laboratory Results Hemoglobin A1c Test 06/01/17 12:06 Range/Units Estimated Average Glucose 126 mg/dl Hemoglobin A1c 6.0 H 4.5-5.6 % Medical Emergencies . Who to Call and When: Medical Emergencies: If at any time you feel your situation is an emergency, please call 911 immediately. . Non-Emergent Contact Non-Emergency issues call your: Primary Care Provider, Surgeon . . "Provider Documentation" section prepared by Gilberto Corcoran. . Core Measure Problem Core Measures: None [place] Drug Monitoring Program Search Results: patient reviewed within database, no issues identified
--- NOTE | 2017-06-23 08:48 | Progress Note ---
Subjective Date of Service: Jun 22, 2017. seen at 9:00 Subjective 81 yo female is her for left shoulder surgery Was consulted for medical management. Patient denies any symptoms except for left shoulder pain. Patient denies any palpitations. Review of Systems Constitutional: No fever, No chills ENT: No hearing loss, No unusual epistaxis Respiratory: No cough, No sputum Cardiac: No chest pain, No orthopnea Abdomen: No pain, No nausea Female : No dysuria, No urinary frequency Psychiatric: No depression symptoms, No anhedonism Endo: No fatigue Skin: No rash, No itch All Other Systems: Reviewed and Negative Medications Current Inpatient Medications Medications (Trade) Dose Ordered Sig/Blayne Route Start Time Stop Time Status Last Admin Dose Admin Atenolol (Tenormin Tab) 25 mg QAM PO 06/21/17 09:00 07/21/17 08:59 06/22/17 08:33 25 MG Diphenhydramine HCl (Benadryl Cap) 25 mg Q8 PRN PO 06/20/17 16:00 07/20/17 15:59 Zolpidem Tartrate (Ambien Tab) 5 mg HSZ PRN PO 06/20/17 16:00 07/20/17 15:59 Metoclopramide HCl (Reglan Inj) 10 mg Q6H PRN IV 06/20/17 16:00 07/20/17 15:59 Ondansetron HCl (Zofran Inj) 4 mg Q6H PRN IV 06/20/17 16:00 07/20/17 15:59 Pantoprazole Sodium (Protonix Tab) 40 mg QAM PO 06/21/17 09:00 07/21/17 08:59 06/22/17 08:28 40 MG Oxycodone HCl (Roxicodone Immediate Rel Tab) `1-2 TABS FOR PAIN `1 TAB... Q4H PRN PO 06/20/17 16:00 07/04/17 15:59 06/22/17 08:36 10 MG Acetaminophen (Tylenol Tab) 1,000 mg Q8 PO 06/20/17 22:00 07/20/17 21:59 06/23/17 06:03 1,000 MG Morphine Sulfate (MoRPHine SULFATE INJ) 2 mg Q2H PRN IV 06/20/17 16:00 07/04/17 15:59 06/21/17 19:27 2 MG Naloxone HCl (Narcan Inj) 0.1 mg Q2M PRN IV 06/20/17 16:00 07/20/17 15:59 Magnesium Hydroxide (Milk Of Magnesia Susp) 30 ml Q6H PRN PO 06/20/17 16:00 07/20/17 15:59 Bisacodyl (Dulcolax Supp) 10 mg DAILY PRN [place] 06/20/17 16:00 07/20/17 15:59 Sodium Biphosphate/ Sodium Phosphate (Fleet Enema) 132 ml DAILY PRN [place] 06/20/17 16:00 07/20/17 15:59 Docusate Sodium (coLACE CAP) 100 mg BID PO 06/20/17 21:00 07/20/17 20:59 06/22/17 22:16 100 MG Multivitamins (Multivitamin Tab) 1 tab DAILY PO 06/21/17 09:00 07/21/17 08:59 06/22/17 08:33 1 TAB Aspirin (Ecotrin Tab) 325 mg QAM PO 06/21/17 09:00 07/21/17 08:59 06/22/17 08:33 325 MG Tramadol HCl (Ultram Tab) 50 mg Q4H PRN PO 06/20/17 16:00 07/20/17 15:59 06/22/17 22:17 50 MG Objective Vital Signs Date Time Temp Pulse Resp B/P (MAP) Pulse Ox O2 Delivery O2 Flow Rate FiO2 06/23/17 07:02 37.0 77 16 131/69 (89) 98 Room Air 06/22/17 23:59 Room Air 06/22/17 23:38 37.2 66 16 135/70 (91) 98 Room Air 06/22/17 16:30 Room Air 06/22/17 15:57 37.2 06/22/17 15:26 37.5 68 16 117/64 (81) 97 Room Air Physical Exam General Appearance: WD/WN, no apparent distress Neck: supple, no adenopathy Respiratory/Chest: chest non-tender, lungs clear, normal breath sounds Cardiovascular: regular rate, rhythm, no edema, no gallop Abdomen: normal bowel sounds, non tender, soft Extremities: normal range of motion, non-tender Skin: normal color Assessment and Plan Patient is a pleasant 81 y/o female, with PMHx of heart valve problems, irregular heartbeat, spine problems, acid reflux, hiatal hernia s/p L total shoulder arthroplasty by Dr. Pablo on 06/20. s/p L total shoulder arthroplasty by Dr. Pablo on 06/20: - Surgical management, pain management, PT/OT, and DVT prophylaxis - Bowel regimen ordered - Follow CBC and PRP postop - Encourage incentive spirometer Irregular heartbeat: Continue Atenolol 25 mg QAM Hypertension: -It has mildly improved -It has continued to be somewhat elevated, likely due to pain. -at this time, will not change anything or add further BP meds as she will likely normalize on discharge -there is concern of adding a PRN as this may drop her BP too low as she normally on needs one BP med at home GI prophylaxis: Protonix DVT prophylaxis: ASA as per surgical team Dispo: As per primary team
[2017-06-23] MEDS: ASPIRIN 325 MG ECTAB PO SCH (09:14)
[2017-06-23] MEDS: MULTIVITAMIN TAB PO SCH (09:14)
[2017-06-23] MEDS: DOCUSATE SODIUM 100 MG CAP PO SCH (09:14)
[2017-06-23] MEDS: PANTOprazole SOD 40 MG TAB PO SCH (09:14)
[2017-06-23] MEDS: TRAMADOL HCL 50 MG TAB PO PRN ×2 (09:20→14:23)
[2017-06-23 14:15] VITALS: BP 131/69; PULSE 77; TEMP 37; O2SAT 98
== END 2017-06-23 14:38 | DRG 483 ==
LOC: C.ACU 10:35 → C.3E 11:00 → ENRESERV 16:35
PROVIDERS: ADMIT Orthopaedic Surgery Sports Medicine; ATTEND Orthopaedic Surgery Sports Medicine
PROC: 0RRK0J6 Replacement of Left Shoulder Joint with Synthetic Substitute, Humeral Surface, Open Approach (ICD-10-PCS; principal; 2017-06-20 12:30)
PROC: 0LQ40ZZ Repair Left Upper Arm Tendon, Open Approach (ICD-10-PCS; principal; 2017-06-20 12:30)
PROC: 0LT Tendons, Resection (ICD-10-PCS; principal; 2017-06-20 12:30)
DX: M19.012 Primary osteoarthritis, left shoulder (principal); M75.22 Bicipital tendinitis, left shoulder; M75.102 Unspecified rotator cuff tear or rupture of left shoulder, not specified as traumatic; K21.9 Gastro-esophageal reflux disease without esophagitis